=== PATIENT | female | born 1980 | race Caucasian/White ===

== ENCOUNTER 2023-12-15 22:24 | Emergency (ER) | payer OTHER, SELFPAY ==
[2023-12-15 22:27] VITALS: BP 177/115
[2023-12-15 22:42] LABS: Urine Albumin 2+ (Neg - Trace); Urine Bilirubin Negative (Negative); Urine Character Clear (Clear); Urine Color Yellow; Urine Glucose Negative (Negative); Urine Ketone Negative (Negative); Urine Leukocyte 2+ (Negative); Urine Nitrite Positive (Negative); Urine Occult Blood 4+ (Negative); Urine Urobilinogen Negative (Neg - 1+)
[2023-12-15 22:48] LABS: Urine Squamous Cell 0-2 /LPF (Few)
[2023-12-15 22:49] LABS: Urine Bacteria Moderate (Negative); Urine Red Blood Cell >100 /HPF (0-2)
--- NOTE | 2023-12-15 23:01 | ED.GENMED ---
Addendum entered and electronically signed by Taurus Mcknight DO 12/19/23 06:05:
Patient called apparently having adverse reaction previously the Bactrim urinalysis noted culture noted we will switch to Keflex, Rx sent to her pharmacy
Original Note:
History of Present Illness
<ERICKA Leonard - Last Filed: 12/15/23 23:51>
General
Chief Complaint: Abdominal Pain
Source: patient
Exam Limitations: none
Time Seen by Provider: 12/15/23 23:00
Nursing documentation reviewed up to this point in time: agreed with
History of Present Illness
History of Present Illness:
Pt is a 43 y/o F with complaints of RLQ pain and hematuria which started suddenly this afternoon. The RLQ pain is described as intermittently sharp and is rated a 3/10 in severity. She also reported dysuria, increased urinary frequency, and
sensation of being unable to finish urinating. She reported that she normally participates in hot yoga and did not shower today afterwards and believes that her symptoms occur afterwards. The patient reported that her LMP was on 12/04/23 and she does
not believe that there is a chance of . She denies N, V, D, fever, headache, chills, fatigue, vaginal discharge. She reported a history of UTI when she was younger.
<Wale Jimenez DO - Last Filed: 12/16/23 00:17>
History of Present Illness
History of Present Illness:
Pt is a 43 y/o F with complaints of RLQ pain and hematuria which started suddenly this afternoon. The RLQ pain is described as intermittently sharp and is rated a 3/10 in severity. She also reported dysuria, increased urinary frequency, and
sensation of being unable to finish urinating. She reported that she normally participates in hot yoga and did not shower today afterwards and believes that her symptoms occur afterwards. The patient reported that her LMP was on 12/04/23 and she does
not believe that there is a chance of . She denies N, V, D, fever, headache, chills, fatigue, vaginal discharge. She reported a history of UTI when she was younger.
0013 This is a 43-year-old female who presents with lower abdominal discomfort, dysuria and hematuria. The patient states that she has had urinary tract infection the past many years ago. She was worried that she had to stay in her sweaty close
today longer than usual and thought maybe that brought it about. Student's note is noted above but the patient denies that it is right lower quadrant. She states is mostly just in her lower abdomen. She has urinary urgency and urinary frequency.
No fevers. No back pain. No flank pain
Past History
<ERICKA Leonard - Last Filed: 12/15/23 23:51>
Past History
ED Past Medical History: None and Other (MVP)
ED Past Surgical History: None
Social History
Tobacco: Non-smoker
Personal:
Living: with family
Review of Systems
<ERICKA Leonard - Last Filed: 12/15/23 23:51>
Review of Systems
Allergies reviewed?: Yes
Constitutional: Reports no symptoms
EENT: Reports no symptoms
Respiratory: Reports no symptoms
Cardiac: Reports no symptoms
ABD/GI: Reports abdominal pain (RLQ)
: Reports dysuria, frequency, difficulty voiding and urgency
Musculoskeletal: Reports no symptoms
Skin: Reports no symptoms
Neurological: Reports no symptoms
Endocrine: Reports no symptoms
Hematologic/Lymphatic: Reports no symptoms
Psychiatric: Reports no symptoms
Phy Exam
<ERICKA Leonard - Last Filed: 12/15/23 23:51>
General Physical Exam
General Presentation: well appearing and no apparent distress
General age: appears stated age
General Skin: warm and dry
General Habitus: normal
General Mental: alert
General Hydration: appears well hydrated
ENT Exam
ENT Exam: neck supple
Eye Exam
Eye Exam: PERRL
Cardiovascular Exam
Cardiovascular Exam: regular rate/rhythm
Pulmonary Exam
Pulmonary Exam: no respiratory distress
Gastrointestinal Exam
Gastrointestinal Exam: normal bowel sounds, non tender, soft, non distended and no cva tenderness
Palpation: generalized: No tenderness
Auscultation of Abdomen: normal
Neurological Exam
Neurological Exam: alert, oriented x3 and no motor deficits
Musculoskeletal Exam
Musculoskeletal Exam: full ROM and neuro vasc intact
Skin Exam
Skin Exam: normal color and warm/dry
Psychiatric Exam
Psychiatric Exam: normal mood/affect
<Wale Jimenez DO - Last Filed: 12/16/23 00:17>
Physical Exam
Physical Exam:
CONSTITUTIONAL Patient alert and oriented to person, place and time. Well-appearing. Vital signs reviewed.
HEAD atraumatic, normocephalic.
EYES eyelids normal to inspection, Extraocular muscles intact, Conjunctiva normal, Sclera normal.
NECK normal range of motion, Trachea midline, no jugular venous distention.
RESPIRATORY CHEST No respiratory distress noted, Chest expansion equal
ABDOMEN abdomen nontender, Bowel sounds normal. No distention.
BACK normal inspection, no obvious deformities, no CVA tenderness
UPPER EXTREMITY range of motion normal, Motor strength normal, no cyanosis, no edema.
LOWER EXTREMITY range of motion normal, Motor strength normal, no cyanosis, no edema.
NEURO Speech normal, No focal motor deficits, Gerber coma scale 15, Memory normal, Cranial Nerves intact to screening exam.
SKIN skin warm, dry, and normal in color.
PSYCHIATRIC patient oriented to person place and time, Normal affect.
Course
<ERICKA Leonard - Last Filed: 12/15/23 23:51>
Orders/Labs/Results
Orders:
Orders
12/15/23 22:34
HCG, Urine Qualitative Screen Urgent
Date Specimen was Collected: 12/15/23
Time Specimen was Collected: 22:30
Urinalysis Reflex To Culture Urgent
Date Specimen was Collected: 12/15/23
Time Specimen was Collected: 22:30
Urine Microscopic Reflex Cult Urgent
Urine Culture Urgent
BRITTNEY Source: U
Specimen Description:
Date Specimen was Collected: 12/15/23
Time Specimen was Collected: 22:30
12/15/23 23:37
Vital Signs- Treatment ONCE
Frequency: Once
12/15/23 23:38
Add On- LAB Urgent
Tests Added?: urine HCG
12/16/23 00:10
Phenazopyridine HCl [Pyridium] 100 mg PO NOW STA
Sulfamethox./Trimethoprim Ds [Bactrim Ds 800 mg/160 mg] 1 tablet PO NOW STA
Abnormal Lab Results
12/15/23
22:34
Ur Occult Blood Reflex 4+ A
(Negative)
Urine Nitrite (Reflex) Positive A
(Negative)
Leukocyte Esterase Rfl 2+ A
(Negative)
Urine RBC >100 A /HPF
(0-2)
Urine WBC (Reflex) 11-15 A /HPF
(0-5)
Urine Bacteria (Reflex) Moderate A
(Negative)
Urine Albumin (Reflex) 2+ A
(Neg - Trace)
Vital Signs
Initial and Last Documented VS:
Initial Vital Signs
Temp Pulse Resp BP Pulse Ox
97.7 F 99 18 177/115 100
12/15/23 22:27 12/15/23 22:27 12/15/23 22:27 12/15/23 22:27 12/15/23 22:27
Last Documented Vital Signs
Temp Pulse Resp BP Pulse Ox
97.7 F 97 15 146/91 99
12/15/23 22:27 12/15/23 23:44 12/15/23 23:44 12/15/23 23:44 12/15/23 23:44
<Wale Jimenez, DO - Last Filed: 12/16/23 00:17>
Orders/Labs/Results
Orders:
Orders
12/15/23 22:34
HCG, Urine Qualitative Screen Urgent
Date Specimen was Collected: 12/15/23
Time Specimen was Collected: 22:30
Urinalysis Reflex To Culture Urgent
Date Specimen was Collected: 12/15/23
Time Specimen was Collected: 22:30
Urine Microscopic Reflex Cult Urgent
Urine Culture Urgent
BRITTNEY Source: U
Specimen Description:
Date Specimen was Collected: 12/15/23
Time Specimen was Collected: 22:30
12/15/23 23:37
Vital Signs- Treatment ONCE
Frequency: Once
12/15/23 23:38
Add On- LAB Urgent
Tests Added?: urine HCG
12/16/23 00:10
Phenazopyridine HCl [Pyridium] 100 mg PO NOW STA
Sulfamethox./Trimethoprim Ds [Bactrim Ds 800 mg/160 mg] 1 tablet PO NOW STA
Abnormal Lab Results
12/15/23
22:34
Ur Occult Blood Reflex 4+ A
(Negative)
Urine Nitrite (Reflex) Positive A
(Negative)
Leukocyte Esterase Rfl 2+ A
(Negative)
Urine RBC >100 A /HPF
(0-2)
Urine WBC (Reflex) 11-15 A /HPF
(0-5)
Urine Bacteria (Reflex) Moderate A
(Negative)
Urine Albumin (Reflex) 2+ A
(Neg - Trace)
Vital Signs
Initial and Last Documented VS:
Initial Vital Signs
Temp Pulse Resp BP Pulse Ox
97.7 F 99 18 177/115 100
12/15/23 22:27 12/15/23 22:27 12/15/23 22:27 12/15/23 22:27 12/15/23 22:27
Last Documented Vital Signs
Temp Pulse Resp BP Pulse Ox
97.7 F 97 15 146/91 99
12/15/23 22:27 12/15/23 23:44 12/15/23 23:44 12/15/23 23:44 12/15/23 23:44
<ERICKA Leonard - Last Filed: 12/15/23 23:51>
MDM/Problems Addressed
Differential Diagnosis Includes:
Cystitis
Pyelonephritis
Nephrolithiasis
<Wale Jimenez DO - Last Filed: 12/16/23 00:17>
MDM/Problems Addressed
MDM/Problems Addressed:
Urinary tract infection
<ERICKA Leonard - Last Filed: 12/15/23 23:51>
*Critical Care Note
Total Time (30-74mins, 75-104mins- exclusive of procedures): Not Applicable
<DO Maxi Viveros Last Filed: 12/16/23 00:17>
*Pulse Oximetry
Patient hypoxic: no
Data Reviewed
Source: patient
Further Testing Considered But Not Given:
Consider CT imaging for kidney stone but patient denies any unilateral severe pain. Do not suspect obstruction
<DO Maxi Viveros Last Filed: 12/16/23 00:17>
Patient Management
Escalation/DeEscalation of care consider admission/obs:
Appears well. Treat with antibiotics. Imaging not warranted at this time but did pet adoption counselor her on the importance of follow-up and return to ER if symptoms worsen.
ED Attending Note
<ERICKA Leonard - Last Filed: 12/15/23 23:51>
-
Portions of this chart may have been created with voice recognition software.� Occasional wrong word or��sound alike� substitutions may have occurred due to the inherent limitations of voice recognition software.
Discharge Plan
Departure
Patient Disposition: Home (Routine Discharge)
Date of Disposition: 12/16/23
Time of Disposition: 00:14
Patient with high blood pressure during this ER visit?: Yes
Discharge Problem:
Urinary tract infection
Instructions: Urinary Tract Infection, Adult (DC), BLOOD PRESSURE
Prescriptions:
New
sulfamethoxazole-trimethoprim [Bactrim DS] 800-160 mg tablet
1 tab PO BID Qty: 10 0RF
No Action
Vitamin Tablet
1 tab PO DAILY
acetaminophen 325 MG tablet
650 mg PO Q4HPRN PRN (Reason: mild pain) 0RF
sennosides-docusate sodium 1 TABLET tablet
1 tab PO DAILYPRN PRN (Reason: constipation) 0RF
ibuprofen 600 MG tablet
600 mg PO Q4HPRN PRN (Reason: moderate pain/cramps) 0RF
phenyleph-min oil-petrolatum [Hemorrhoidal(PE-min oil-keith)] 1 APPLIC ointment
0 applic WI QIDPRN PRN (Reason: HEMORROID PAIN/DISCOMFORT) 0RF
Referrals:
Cristino Mack PA-C [Family Provider] -
Activity Restrictions/Additional Instructions:
Please drink plenty of fluids. Please use Tylenol and ibuprofen for pain. REturn immediately for fevers, back pain, vomiting or any other concerns.
Interventions
Interventions:
*Risk Screen - Suicide Last Done: 12/15/23 22:27
*General Assessment Last Done: 12/15/23 22:27
*Neglect/Abuse Screening Last Done: 12/15/23 22:27
*ED COVID-19 Vaccine History Last Done: 12/15/23 23:43
US-Rvoabb-Coxtchfctg Assessment Last Done: 12/15/23 23:43
ED-Female Genitourinary Assessment Last Done: 12/15/23 23:43
Discharge Date and Time
Print Language: GREENLANDIC
[2023-12-15 23:43] VITALS: BMI 21.8
[2023-12-15 23:44] VITALS: BP 146/91
[2023-12-15 23:58] LABS: HCG, Urine Qualitative Screen Negative
[2023-12-16] MEDS: BACTRIM DS 800 MG/160 MG 1 TABLET PO (00:20)
[2023-12-16] MEDS: Pyridium 100 MG PO (00:20)
[2023-12-16 00:22] VITALS: BP 144/97
== END 2023-12-16 00:31 | disposition home or self-care (01) ==
LOC: EMR 22:24
PROVIDERS: Emergency Medicine; EMERGENCY PHYSICIAN Emergency Medicine; FAMILY PHYSICIAN Physician Assistant Medical
DX: N39.0 Urinary tract infection, site not specified (principal); R31.9 Hematuria, unspecified; Z87.440 Personal history of urinary (tract) infections
CPT/HCPCS: 99282; 81003; 81015; 81025; 87086

== ENCOUNTER → 2024-06-18 12:56 | Outpatient (REF) | payer OTHER, SELFPAY | LOC: HWRCS 12:56 | PROVIDERS: ATTENDING PHYSICIAN Internal Medicine Cardiovascular Disease; FAMILY PHYSICIAN Physician Assistant Medical | DX: I34.0 Nonrheumatic mitral (valve) insufficiency (principal) | CPT/HCPCS: 93306 ==

== ENCOUNTER → 2024-07-15 07:56 | Outpatient (REF) | payer OTHER, SELFPAY | LOC: HWRAD 07:56 | PROVIDERS: ATTENDING PHYSICIAN Nurse Practitioner Family; FAMILY PHYSICIAN Physician Assistant Medical | DX: R14.0 Abdominal distension (gaseous) (principal) | CPT/HCPCS: 76700 ==

== ENCOUNTER → 2024-12-04 15:41 | Outpatient (REF) | payer OTHER, SELFPAY | LOC: RAD 15:41 | PROVIDERS: ATTENDING PHYSICIAN Internal Medicine Gastroenterology; FAMILY PHYSICIAN Physician Assistant Medical | DX: R19.4 Change in bowel habit (principal) | CPT/HCPCS: 74018 ==

== ENCOUNTER 2024-12-31 06:21 | Day surgery (SDC) | payer OTHER, SELFPAY | END 2024-12-31 10:52 | disposition home or self-care (01) | LOC: GI 06:21 | PROVIDERS: ATTENDING PHYSICIAN Internal Medicine Gastroenterology | DX: Z12.11 Encounter for screening for malignant neoplasm of colon (principal); Q43.8 Other specified congenital malformations of intestine; K64.8 Other hemorrhoids | CPT/HCPCS: 45380; 88305 ==